=== PATIENT | male | born 1965 | race Caucasian/White ===

== ENCOUNTER 2016-09-19 04:54 | Inpatient (IN) | payer SELFPAY ==
[~2016-09-19] VITALS: Ht 167.6 cm; Wt 73.0 kg
[2016-09-19] MEDS ORDERED: SODIUM CHLORIDE 0.9% 1,000 ML IV ONE ×2 (06:02→07:45)
[2016-09-19 06:29] LABS: HEMATOCRIT. 32.4 % (42.0-52.0); HEMOGLOBIN. 11.3 g/dL (14.0-18.0); MEAN CORPUSCULAR HEMOGLOBIN 31.5 pg (28.0-32.0); MEAN CORPUSCULAR VOLUME 90.4 fL (80.0-94.0); MEAN PLATELET VOLUME 8.3 fl (7.4-10.4); PLATELET 175 x1000/uL (130-400); RED BLOOD CELL COUNT 3.58 mill/uL (4.7-6.1); RED CELL DISTRIBUTION WIDTH 16.2 % (11.6-14.6)
[2016-09-19 06:48] LABS: CARBON DIOXIDE 24 mEq/L (21-32); CHLORIDE 88 mEq/L (98-107)
[2016-09-19 07:24] LABS: CLARITY URINE CLEAR (CLEAR); COLOR URINE YELLOW (YELLOW); GLUCOSE URINE NEGATIVE (NEGATIVE); KETONES URINE TRACE (NEGATIVE); LEUKOCYTE ESTERASE URINE NEGATIVE (NEGATIVE); NITRITE URINE NEGATIVE (NEGATIVE); OCCULT BLOOD URINE NEGATIVE (NEGATIVE); PH URINE 6.5 (4.5-8.0); PROTEIN URINE NEGATIVE (NEGATIVE); SPECIFIC GRAVITY URINE 1.008 (1.005-1.030)
[2016-09-19 07:48] LABS: *AMPHETAMINES SCREEN URINE NEGATIVE (NEGATIVE); *BARBITURATES SCREEN URINE NEGATIVE (NEGATIVE); *BENZODIAZEPINES SCREEN URINE NEGATIVE (NEGATIVE); *COCAINE SCREEN URINE NEGATIVE (NEGATIVE); CANNABINOID URINE SCREEN NEGATIVE (NEGATIVE); METHADONE URINE SCREEN NEGATIVE (NEGATIVE); OPIATES URINE SCREEN NEGATIVE (NEGATIVE); PHENCYCLIDINE URINE SCREEN NEGATIVE (NEGATIVE)
[2016-09-19] MEDS ORDERED: POTASSIUM CHLORIDE INJ 40 MEQ in DEXT 5% WATER 500 ML IV ONE (08:15)
[2016-09-19 08:50] LABS: PLATELET ESTIMATE NORMAL
[2016-09-19] MEDS ORDERED: LORAZEPAM 2MG/ML CPJ IV ONE (12:00)
[2016-09-19] MEDS ORDERED: NA PHOS,M-B/NA PHOS,DI-BA ENEMA 118ML PR PRN (17:15)
[2016-09-19] MEDS ORDERED: DOCUSATE SODIUM 100MG CAPSULE PO PRN (17:15)
[2016-09-19] MEDS ORDERED: ONDANSETRON HCL 4MG/2ML VIAL IV PRN (17:15)
[2016-09-19] MEDS ORDERED: POTASSIUM CHLORIDE 20MEQ TABLET SR PO SCH (17:15)
[2016-09-19] MEDS ORDERED: ACETAMINOPHEN 325MG TABLET PO PRN (17:15)
[2016-09-19] MEDS ORDERED: NITROGLYCERIN 0.4MG TABLET SL SL PRN (17:15)
[2016-09-19] MEDS ORDERED: KETOROLAC 15MG/ML VIAL IV PRN (17:15)
[2016-09-19] MEDS ORDERED: IPRATROPIUM/ALBUTEROL 0.5-3(2.5)MG/3ML NEB INH PRN (17:15)
[2016-09-19] MEDS ORDERED: CLONIDINE 0.1MG TABLET PO PRN (17:15)
[2016-09-19 17:16] LABS: CHLORIDE 99 mEq/L (98-107)
[2016-09-19 17:19] LABS: AMMONIA 32 uMol/L (<32)
[2016-09-19 17:21] LABS: CARBON DIOXIDE 27 mEq/L (21-32)
[2016-09-19] MEDS ORDERED: MAGNESIUM 2 G PREMIX 50 ML IV SCH (22:00)
[2016-09-19] MEDS ORDERED: ENOXAPARIN 40MG/0.4ML SYR SUBCUT SCH (22:00)
[2016-09-19] MEDS ORDERED: KCL 20MEQ/100ML PREMIX 100 ML IV SCH (22:30)
[2016-09-19] MEDS ORDERED: MVI, ADULT NO.1 10 ML, FOLIC ACID 1 MG, THIAMINE HCL 100 MG in SODIUM CHLORIDE 0.9% 1,0... IV SCH ×4 (22:30)
[2016-09-19 23:00] VITALS: BP 146/66
[2016-09-20] VITALS: BP 146/66
[2016-09-20] MEDS: CHLORDIAZEPOXIDE 5 MG CAPSULE PO SCH ×2 (00:18→06:09)
[2016-09-20] MEDS: LACTULOSE 20G/30ML UDC PO SCH ×3 (00:22→10:11)
[2016-09-20 04:00] VITALS: BP 141/65
[2016-09-20 08:00] VITALS: BP 127/77
[2016-09-20] MEDS ORDERED: PANTOPRAZOLE SODIUM 40 MG/VIAL IV SCH (09:00)
[2016-09-20 12:00] VITALS: BP 124/85
[2016-09-20 16:00] VITALS: BP 120/80
[2016-09-20 16:53] VITALS: BP 120/80
== END 2016-09-20 17:40 | disposition home or self-care (01) | DRG 775 ==
LOC: ER 04:57 → 6EST 17:15 → EDBEDREQ 17:19 → ENRESERV 21:54
PROVIDERS: ADMIT Internal Medicine; ATTEND Internal Medicine
DX: F10.239 Alcohol dependence with withdrawal, unspecified (principal); K72.90 Hepatic failure, unspecified without coma; K70.30 Alcoholic cirrhosis of liver without ascites; E87.1 Hypo-osmolality and hyponatremia; E87.6 Hypokalemia; Y90.0 Blood alcohol level of less than 20 mg/100 ml; R74.0 Nonspecific elevation of levels of transaminase and lactic acid dehydrogenase [LDH]; Z59.0 Homelessness; Z71.41 Alcohol abuse counseling and surveillance of alcoholic
CPT/HCPCS: 36415; 70450; 71010; 80048; 80053; 80305; 81003; 82140; 83036; 83735; 85025; 93005; 96361; 96365; 96375; 99285; C9113; G0482; J1650; J2060; J3411; J3475; J3480; J3490; J7030; J7040; J7060